=== PATIENT | male | born 1945 | race Caucasian/White ===

== ENCOUNTER 2016-08-29 07:40 | Outpatient (CLI) | payer MEDICARE, OTHER | END 2016-08-29 07:41 | disposition home or self-care (01) | DX: C67.9 Malignant neoplasm of bladder, unspecified (principal); E78.5 Hyperlipidemia, unspecified; J44.9 Chronic obstructive pulmonary disease, unspecified ==

== ENCOUNTER 2017-03-25 10:14 | Outpatient (CLI) | payer MEDICARE, OTHER ==
[2017-03-25 11:01] LABS: CREATININE 1.1 mg/dL (0.6-1.2)
[2017-03-25] MEDS ORDERED: IOPAMIDOL-300 100 ML VIAL IVP ONE (12:33)
--- NOTE | 2017-03-25 16:49 | CT Report ---
CT IVP: 03/25/2017 CLINICAL HISTORY: Malignancy of the bladder. TECHNIQUE: Prior to and after the administration of 100 mL of Isovue, axial images are obtained from the domes of the diaphragm through the pubic symphysis. Sagittal and coronal reformations performed. COMPARISON: 09/10/2012. 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 An indwelling Cadena catheter is in place The kidneys are grossly normal. There is no hydronephrosis or hydroureter. The liver, gallbladder, pancreas, spleen and adrenal glands are stable. There are a few shotty mesenteric, retroperitoneal and pelvic lymph nodes without adenopathy. There is no free fluid. Moderate stool is retained in the colon. A few diverticula are noted. There are no dilated segments of small or large bowel. The osseous structures are intact. Mild degenerative changes are noted throughout the lumbar spine. There are no definite lytic or blastic destructive lesions. Advanced atherosclerotic calcifications are incidental in the aorta. IMPRESSION: 1. POSTRADICAL CYSTECTOMY WITH NORA-BLADDER. NO OBSTRUCTIVE UROPATHY. 2. NO EVIDENCE FOR LOCAL/REGIONAL RECURRENCE. In accordance with CT protocol optimization, one or more of the following dose reduction techniques were utilized for this exam: automated exposure control, adjustment of mA and/or KV based on patient size, or use of iterative reconstructive technique. JOB #: [id number] EXT JOB #: [id number] MTDD
== END 2017-03-25 10:15 | disposition home or self-care (01) ==
LOC: LAB 10:14
PROVIDERS: ATTEND Urology
DX: Z85.51 Personal history of malignant neoplasm of bladder (principal); Z90.6 Acquired absence of other parts of urinary tract; Z93.6 Other artificial openings of urinary tract status
CPT/HCPCS: 36415; 74178; 82565; Q9967

== ENCOUNTER 2017-04-14 08:47 | Outpatient (CLI) | payer MEDICARE, OTHER ==
[2017-04-14 13:54] LABS: BILIRUBIN,URINE NEGATIVE (NEGATIVE)
[2017-04-14 14:16] LABS: ALBUMIN/GLOBULIN RATIO 1.5 (1.0-2.2); BILIRUBIN,TOTAL 0.4 mg/dL (0.2-1.0); BUN - BLOOD UREA NITROGEN 15 mg/dL (6-20); CALCIUM 9.3 mg/dL (8.5-10.3); CARBON DIOXIDE - CO2 25 mmol/L (21-32); CHLORIDE 104 mmol/L (101-111); CHOL/HDL RATIO 3.4 (<5.0); CHOLESTEROL 117 mg/dL; CREATININE 1.2 mg/dL (0.6-1.2); GFR - MDRD 60 (>89); GLUCOSE 96 mg/dL (70-100); HDL CHOLESTEROL 34 mg/dL; LDL/HDL RATIO 1.7 (<3.6); POTASSIUM 4.1 mmol/L (3.5-5.0); SODIUM 138 mmol/L (135-145); TOTAL PROTEIN 7.5 g/dL (6.7-8.2); TRIGLYCERIDES 122 mg/dL; VLDL CHOLESTEROL 24 mg/dL
[2017-04-14 14:19] LABS: UR CULTURE IF IND INDICATED
== END 2017-04-14 08:48 | disposition home or self-care (01) ==
LOC: LAB.WCP 08:47
PROVIDERS: ATTEND Family Medicine
DX: E78.5 Hyperlipidemia, unspecified (principal); R41.3 Other amnesia; Z12.5 Encounter for screening for malignant neoplasm of prostate; C67.9 Malignant neoplasm of bladder, unspecified
CPT/HCPCS: 36415; 80053; 80061; 81001; 87086; G0103; 84153

== ENCOUNTER 2018-04-28 09:20 | Outpatient (CLI) | payer MEDICARE, OTHER ==
[2018-04-28 13:03] LABS: BASOPHILS % (AUTO) 0.5 %; EOSINOPHILS % (AUTO) 0.7 %; HGB - HEMOGLOBIN 14.1 g/dL (14.0-18.0); LYMPHOCYTES # (AUTO) 1.5 10^3/uL (1.5-3.5); LYMPHOCYTES % (AUTO) 24.6 %; MEAN CORPUSCULAR HEMOGLOBIN 30.7 pg (27.0-31.0); MEAN CORPUSCULAR HGB CONC 33.2 g/dL (32.0-36.0); MEAN CORPUSCULAR VOLUME 92.4 fL (80.0-94.0); MEAN PLATELET VOLUME 9.3 fL (7.4-11.4); MONOCYTES # (AUTO) 0.4 10^3/uL (0.0-1.0); MONOCYTES % (AUTO) 5.8 %; NEUTROPHILS # (AUTO) 4.3 10^3/uL (1.5-6.6); NEUTROPHILS % (AUTO) 68.4 %; PLT - PLATELET COUNT 241 10^3/uL (130-450); RED BLOOD COUNT 4.59 10^6/uL (4.70-6.10); RED CELL DISTRIBUTION WIDTH 15.3 % (12.0-15.0); WHITE BLOOD COUNT 6.3 x10^3/uL (4.8-10.8)
[2018-04-28 13:47] LABS: ALBUMIN 4.3 g/dL (3.2-5.5); ALBUMIN/GLOBULIN RATIO 1.4 (1.0-2.2); ALKALINE PHOSPHATASE 38 IU/L (42-121); ALT ALANINE AMINOTRANSFERASE 11 IU/L (10-60); AST ASPARTATE AMINOTRANSFERASE 17 IU/L (10-42); BILIRUBIN,TOTAL 0.5 mg/dL (0.2-1.0); BUN - BLOOD UREA NITROGEN 16 mg/dL (6-20); CARBON DIOXIDE - CO2 25 mmol/L (21-32); CHLORIDE 104 mmol/L (101-111); CHOL/HDL RATIO 4.6 (<5.0); CHOLESTEROL 158 mg/dL; GFR - MDRD 73 (>89); GLUCOSE 90 mg/dL (70-100); HDL CHOLESTEROL 34 mg/dL; LDL CHOLESTEROL,CALCULATED 92 mg/dL; LDL/HDL RATIO 2.7 (<3.6); SODIUM 137 mmol/L (135-145); TOTAL PROTEIN 7.3 g/dL (6.7-8.2); VLDL CHOLESTEROL 32 mg/dL
== END 2018-04-28 09:21 | disposition home or self-care (01) ==
LOC: LAB.WCP 09:20
PROVIDERS: ATTEND Physician Assistant Medical
DX: E78.5 Hyperlipidemia, unspecified (principal); J44.9 Chronic obstructive pulmonary disease, unspecified
CPT/HCPCS: 36415; 80053; 80061; 83721; 85025

== ENCOUNTER 2018-11-25 18:55 | Emergency (ER) | payer MEDICARE, OTHER ==
[2018-11-25 19:08] VITALS: BP 135/81
--- NOTE | 2018-11-25 20:30 | ED Physician Documentation ---
PD HPI MALE - Stated complaint Stated Complaint: CATH ISSUES - Chief complaint Chief Complaint: General - History obtained from History obtained from: Patient - History of Present Illness Timing - onset: Today Timing - duration: Hours (he says bladder felt full, no urine out de paz, and then having some come out urethra around the de paz. 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 The current d epaz was placed just couple weeks ago routinely.) Review of Systems Constitutional: denies: Fever, Chills GI: denies: Abdominal Pain, Nausea, Vomiting Skin: denies: Rash Musculoskeletal: denies: Back pain PD PAST MEDICAL HISTORY - Past Medical History Cardiovascular: None Respiratory: None Endocrine/Autoimmune: None GI: None : Benign prostate hypertrophy, Indwelling catheter Psych: None Musculoskeletal: None Derm: None - Past Surgical History HEENT: Tonsil/Adenoidectomy - Present Medications Home Medications: Ambulatory Orders Medication Instructions Recorded Confirmed No Known Home Medications 11/25/18 11/25/18 - Allergies Allergies/Adverse Reactions: Allergies Allergy/AdvReac Type Severity Reaction Status Date / Time No Known Drug Allergies Allergy Verified 03/31/13 18:23 - Social History Smoking Status: Smoker current status unk PD ED PE NORMAL - Vitals Vital signs reviewed: Yes - General General: Alert and oriented X 3, No acute distress (but seems uncomfortable due to full bladder. ), Well developed/nourished - Abdomen Abdomen: Soft, Non tender, Other (some fullness in suprapubic area. ) - Back Back: No CVA TTP Results - Vitals Vitals: Vital Signs - 24 hr 11/25/18 19:02 Temperature 36.8 C Heart Rate 57 L Respiratory 16 Rate Blood Pressure 135/81 H O2 Saturation 100 Oxygen O2 Source Room air PD MEDICAL DECISION MAKING - ED course Complexity details: considered differential (nursing replaced the de paz and it seems to be draining okay. Urine out is clear. ), d/w patient Departure - Departure Disposition: 01 Home, Self Care Clinical Impression: Obstructed De Paz catheter Qualifiers: Encounter type: initial encounter Qualified Code(s): T83.091A - Other mechanical complication of indwelling urethral catheter, initial encounter Condition: Stable Record reviewed to determine appropriate education?: Yes Instructions: ED Catheter Care De Paz Follow-Up: Eddie Ferguson MD [Primary Care Provider] - Comments: Continue usual medications and catheter care. Return if problems. Discharge Date/Time: 11/25/18 20:40
== END 2018-11-25 20:40 | disposition home or self-care (01) ==
LOC: ED 18:55
DX: T83.091A Other mechanical complication of indwelling urethral catheter, initial encounter (principal); F17.200 Nicotine dependence, unspecified, uncomplicated
CPT/HCPCS: 51702; 99282

== ENCOUNTER 2018-11-27 13:41 | Emergency (ER) | payer MEDICARE, OTHER ==
[2018-11-27 13:46] VITALS: BP 124/75
[2018-11-27] MEDS ORDERED: LIDOCAINE 2% URO-JET 5 ML SYRINGE UR STA (13:59)
--- NOTE | 2018-11-27 14:16 | ED Physician Documentation ---
History of Present Illness - Stated complaint Stated Complaint: CATH COMPLICATIONS - Chief complaint Chief Complaint: General - History obtained from History obtained from: Patient - History of Present Illness Timing: Today Pain level max: 0 Pain level now: 0 - Additonal information Additional information: 73-year-old male with a chronic indwelling Cadena catheter states that his catheter is leaking. It was replaced 2 days ago. Nothing makes it better or worse Review of Systems Constitutional: denies: Fever GI: denies: Vomiting Skin: denies: Rash Musculoskeletal: denies: Neck pain, Back pain Neurologic: denies: Headache PD PAST MEDICAL HISTORY - Past Medical History Cardiovascular: None Respiratory: None Endocrine/Autoimmune: None GI: None : Benign prostate hypertrophy, Indwelling catheter Psych: None Musculoskeletal: None Derm: None - Past Surgical History HEENT: Tonsil/Adenoidectomy - Present Medications Home Medications: Ambulatory Orders Medication Instructions Recorded Confirmed No Known Home Medications 11/25/18 11/25/18 - Allergies Allergies/Adverse Reactions: Allergies Allergy/AdvReac Type Severity Reaction Status Date / Time No Known Drug Allergies Allergy Verified 03/31/13 18:23 - Social History Smoking Status: Smoker current status unk PD ED PE NORMAL - Vitals Vital signs reviewed: Yes - General General: Alert and oriented X 3, No acute distress - HEENT HEENT: Moist mucous membranes - Abdomen Abdomen: Soft, Non tender, Non distended - Male Male : Other (Clear yellow urine leaking around the catheter) - Derm Derm: Warm and dry - Neuro Neuro: Alert and oriented X 3 Results - Vitals Vitals: Vital Signs - 24 hr 11/27/18 13:42 Temperature 36.9 C Heart Rate 69 Respiratory 18 Rate Blood Pressure 124/75 O2 Saturation 99 Oxygen O2 Source Room air PD MEDICAL DECISION MAKING - ED course Complexity details: considered differential, d/w patient ED course: 73-year-old male presents to the emergency department with clear urine leaking around his Cadena catheter. The catheter was replaced. Tolerated well. Will follow up with his PCP. Patient counseled regarding signs and symptoms for which I believe and urgent re-evaluation would be necessary. Patient with good understanding of and agreement to plan and is comfortable going home at this time This document was made in part using voice recognition software. While efforts are made to proofread this document, sound alike and grammatical errors may occur. Departure - Departure Disposition: 01 Home, Self Care Clinical Impression: Obstructed Cadena catheter Qualifiers: Encounter type: initial encounter Qualified Code(s): T83.091A - Other mechanical complication of indwelling urethral catheter, initial encounter Condition: Good Instructions: ED Catheter Care Cadena Follow-Up: Eddie Ferguson MD [Primary Care Provider] - Within 1 week Comments: Your catheter was replaced today. Return if you worsen. Follow-up with your doctor for further care.
== END 2018-11-27 14:41 | disposition home or self-care (01) ==
LOC: ED 13:41
DX: T83.038A Leakage of other urinary catheter, initial encounter (principal)
CPT/HCPCS: 51702; 99282; 99283